=== PATIENT | female | born 1940 | race Caucasian/White ===

== ENCOUNTER → 2017-12-26 | Outpatient (CLI) | payer MEDICARE | LOC: M RAD 08:06 | DX: M47.817 Spondylosis without myelopathy or radiculopathy, lumbosacral region (principal); M54.16 Radiculopathy, lumbar region; M70.61 Trochanteric bursitis, right hip; M46.1 Sacroiliitis, not elsewhere classified | CPT/HCPCS: 72131 ==

== ENCOUNTER → 2018-12-10 | Outpatient (REF) | payer MEDICARE ==
[2018-12-10 18:30] LABS: APPEARANCE, URINE CLEAR (CLEAR); BACTERIA, URINE AUTO NEGATIVE (NEGATIVE); BILIRUBIN, URINE AUTO NEGATIVE (NEGATIVE); BLOOD, URINE BLOOD NEGATIVE (NEGATIVE); COLOR, URINE YELLOW (YELLOW); GLUCOSE, URINE (UA) AUTO NEGATIVE (NEGATIVE); KETONE, URINE AUTO NEGATIVE (NEGATIVE); LEUKOCYTE ESTERASE, URINE AUTO NEGATIVE (NEGATIVE); MUCUS, URINE SMALL (NEGATIVE); NITRITE, URINE AUTO NEGATIVE (NEGATIVE); PROTEIN, URINE AUTO NEGATIVE (NEGATIVE); RBC, URINE AUTO 2 /HPF (0-3); SPECIFIC GRAVITY URINE AUTO 1.018 (1.002-1.035); SQUAMOUS EPITHELIAL CELL UR AU 0 /HPF (0-6); UROBILINOGEN, URINE AUTO 0.2 mg/dL (0.0-2.0); WBC, URINE AUTO 0 /HPF (0-3)
== END ==
LOC: M LAB REF 16:25
PROVIDERS: ATTEND Obstetrics & Gynecology
DX: N32.81 Overactive bladder (principal); N39.41 Urge incontinence; N39.42 Incontinence without sensory awareness

== ENCOUNTER → 2019-07-29 | Outpatient (CLI) | payer MEDICARE ==
--- NOTE | 2019-07-29 10:17 | REP ---
CT LEFT ANKLE: Axial CT images of the left ankle performed with sagittal and coronal reconstruction images. There is no acute fracture or dislocation. Ankle mortise is intact with mild narrowing of the tibiotalar joint, and mild subchondral sclerosis. There is mild ligamentous calcification along the distal end of the fibula. No other osseous abnormities are seen. The soft tissue structures are grossly unremarkable. Electronically Signed by Kane Tompkins MD 07/29/2019 04:20 P
--- NOTE | 2019-07-29 10:31 | REP ---
CT LEFT LOWER LEG: Axial CT left lower leg performed with sagittal and coronal reconstruction images. There is no acute fracture or dislocation. At the knee joint there is mild chondrocalcinosis in the lateral joint. There is moderate narrowing of the lateral patellofemoral joint with mild subchondral sclerosis on both sides of the joint. Mild subchondral cystic change is seen in the lateral patellar facet and there is moderate spurring of the lateral patellar facet. There is mild narrowing of the tibiotalar joint. Surrounding soft tissue structures are grossly unremarkable. Electronically Signed by Kane Tompkins MD 07/29/2019 04:20 P
== END ==
LOC: M RAD 08:05
PROVIDERS: ATTEND Orthopaedic Surgery
DX: M25.762 Osteophyte, left knee (principal); M79.662 Pain in left lower leg

== ENCOUNTER 2019-09-29 23:52 | Emergency (ER) | payer MEDICARE ==
[~2019-09-29] VITALS: Ht 152.4 cm; Wt 65.9 kg
[2019-09-29 23:53] VITALS: BP 116/64
[2019-09-30] MEDS ORDERED: MYRB25TA PO (00:01)
[2019-09-30] MEDS ORDERED: VESI10TA2 PO (00:01)
[2019-09-30] MEDS ORDERED: GABA-845 PO (00:01)
[2019-09-30] MEDS ORDERED: CYMB1CAP4 PO (00:01)
[2019-09-30] MEDS ORDERED: ROXI1TAB2 PO (00:01)
[2019-09-30] MEDS ORDERED: LEVO25TA5 PO (00:01)
--- NOTE | 2019-09-30 01:11 | REPVR ---
PROCEDURE INFORMATION: Exam: US Duplex Right Lower Extremity Veins, Limited Exam date and time: 09/30/2019 12:39 AM Age: 79 years old Clinical indication: Pain; Leg, lower; Right; Additional info: R/O dvt rle TECHNIQUE: Imaging protocol: Real-time Duplex ultrasound of the Right Lower Extremity with 2-D de luna scale, color Doppler flow and spectral waveform analysis with image documentation. Limited exam was focused on the right lower extremity veins. COMPARISON: No relevant prior studies available. FINDINGS: Right deep veins: Unremarkable. The common femoral, femoral, proximal profunda femoral and popliteal veins are patent without thrombus. Normal Doppler waveforms. Normal compressibility and/or augmentation response. Right superficial veins: Unremarkable. Saphenofemoral junction is patent without thrombus. Soft tissues: Unremarkable. IMPRESSION: No acute findings. No evidence of deep vein thrombosis. Electronically signed by: Fazal Alvarado On 09/30/2019 01:11:19 AM
[2019-09-30] MEDS ORDERED: diazePAM 5 MG TAB PO ONE (01:45)
[2019-09-30] MEDS ORDERED: predniSONE 20 MG TAB PO ONE (01:45)
== END 2019-09-30 02:35 | disposition home or self-care (01) ==
LOC: M ED 23:52
DX: G89.29 Other chronic pain (principal); M54.10 Radiculopathy, site unspecified; M54.31 Sciatica, right side; Z88.0 Allergy status to penicillin

== ENCOUNTER → 2020-03-09 | Outpatient (REF) | payer MEDICARE ==
[~2020-03-09] MED LIST: CYMB1CAP4 PO; GABA-845 PO; LEVO25TA5 PO; MYRB25TA PO; ROXI1TAB2 PO; VESI10TA2 PO
== END ==
LOC: M LAB REF 09:22
PROVIDERS: ATTEND Dermatology
DX: D22.5 Melanocytic nevi of trunk (principal)
CPT/HCPCS: 11102; 17000; 17003; 88305; G0463

== ENCOUNTER → 2020-05-20 | Outpatient (REF) | payer MEDICARE | LOC: M LAB REF 17:30 | PROVIDERS: ATTEND Physician Assistant | DX: L57.0 Actinic keratosis (principal) | CPT/HCPCS: 11102; 17000; 17003; 88305; G0463 ==

== ENCOUNTER → 2021-03-22 | Outpatient (CLI) | payer MEDICARE ==
[~2021-03-22] MED LIST changes: +GABA-283 PO; -GABA-845 PO
--- NOTE | 2021-03-24 10:21 | REPVR ---
PROCEDURE INFORMATION: Exam: CT Lumbar Spine Without Contrast Exam date and time: 03/22/2021 10:41 AM Age: 80 years old Clinical indication: Low back pain; Prior surgery; Surgery date: 6+ months; Surgery type: Dcs, fusion; Additional info: Spinal stenosis, R/O hnp/stenosis/internal deragne TECHNIQUE: Imaging protocol: Computed tomography images of the lumbar spine without contrast. Radiation optimization: All CT scans at this facility use at least one of these dose optimization techniques: automated exposure control; mA and/or kV adjustment per patient size (includes targeted exams where dose is matched to clinical indication); or iterative reconstruction. COMPARISON: CT Spine, lumbar w/o contrast 12/26/2017 8:19 AM FINDINGS: Tubes, catheters and devices: There is a spinal stimulator entering at T11-T12 and extending superiorly and tip is not visualized. Vertebrae: No evidence of acute fracture. Stable minimal retrolisthesis of T12 on L1 and L1 on L2. T11-T12: The T11-T12, T12-L1, L3-4 and L5-S1 intervertebral discs are decreased in height. There are vacuum phenomenon T11-T12 and at the L5-S1 level. These findings are consistent with disc degeneration. L1-L2: A diffuse disc bulge is present at the L1-2 level. There is no significant spinal stenosis. There is mild neural foraminal narrowing. The L1 nerves exit the neural foramina without compression. L2-L3: A diffuse disc bulge is present at the L2-3 level. There is no significant spinal stenosis. There is mild neural foraminal narrowing. The L2 nerves exit the neural foramina without compression. L3-L4: A diffuse disc bulge is present at the L3-4 level. There is there is likely mild spinal stenosis. There is mild right and [id number] left neural foraminal narrowing. The L3 nerves exit the neural foramina without compression. L4-L5: The patient is status post L4-5 anterior and posterior spinal fusion and laminectomy. Metal hardware is present with interbody fusion graft as well as right phyllis and pedicle screws. No significant spinal canal compromise. There is disc bulge. There is hypertrophy of the posterior articulating facets. There are 7 mm of grade 1 spondylolisthesis of L4 on 5. There is moderate bilateral neural foraminal narrowing with probable compression of the L4 nerves in the neural foramina. L5-S1: A diffuse disc bulge is present at the L5-S1 level. There is no spinal stenosis. There is hypertrophy of the posterior articulating facets. There is moderate bilateral neural foraminal narrowing and likely compression of the L5 nerves in the neural foramina. Liver: There is stable 1.5 cm cyst in right lobe of liver. Stomach and bowel: Sigmoid diverticulosis is noted. Vasculature: There is atherosclerotic change. No aortic aneurysm. Soft tissues: There is fat containing posterior right Bochdalek's hernia. IMPRESSION: 1. Degenerative changes as described without significant interval change. 2. The patient is status post L4-5 anterior and posterior spinal fusion and 3. Laminectomy. No evidence of hardware complications. Electronically signed by: Roxanne Chaves On 03/24/2021 10:21:09 AM
== END ==
LOC: M PLAIMG 10:21
PROVIDERS: ATTEND Orthopaedic Surgery
DX: M51.34 Other intervertebral disc degeneration, thoracic region (principal); M51.35 Other intervertebral disc degeneration, thoracolumbar region; M51.36 Other intervertebral disc degeneration, lumbar region; M51.37 Other intervertebral disc degeneration, lumbosacral region; M51.26 Other intervertebral disc displacement, lumbar region; M51.27 Other intervertebral disc displacement, lumbosacral region; Z98.890 Other specified postprocedural states

== ENCOUNTER → 2022-06-07 | Outpatient (CLI) | payer MEDICARE ==
[~2022-06-07] MED LIST changes: +GABA-1171 PO; +MULT-40 PO
[2022-06-07 12:42] LABS: HEMATOCRIT 37.9 % (36.0-47.0); HEMOGLOBIN 11.7 g/dl (12.0-15.5); MEAN CORPUSCULAR HEMOGLOBIN 28.1 pg (27.0-33.0); MEAN CORPUSCULAR HGB CONC 30.9 g/dl (32.0-36.5); MEAN CORPUSCULAR VOLUME 90.9 fl (80.0-96.0); PLATELET COUNT, AUTOMATED 237 10^3/uL (150-450); RED BLOOD COUNT 4.17 10^6/uL (4.00-5.40); WHITE BLOOD COUNT 4.5 10^3/uL (4.0-10.0)
[2022-06-07 12:54] LABS: INR 0.96
[2022-06-07 13:42] LABS: ALBUMIN 3.6 GM/DL (3.2-5.2); ALT/SGPT 24 U/L (12-78); BILIRUBIN,TOTAL 0.4 MG/DL (0.2-1.0); BLOOD UREA NITROGEN 18 MG/DL (7-18); CALCIUM LEVEL 9.3 MG/DL (8.8-10.2); CARBON DIOXIDE LEVEL 29 MEQ/L (21-32); CHLORIDE LEVEL 106 MEQ/L (98-107); CHOLESTEROL LEVEL 200 MG/DL (<200); CHOLESTEROL RISK RATIO 2.597 (<5); CREATININE FOR GFR 0.78 MG/DL (0.55-1.30); GLOMERULAR FILTRATION RATE > 60.0 (>32); GLUCOSE, FASTING 95 MG/DL (70-100); HDL CHOLESTEROL 77 MG/DL (>40); LDL CHOLESTEROL 106 MG/DL (<100); NON-HDL-C 123 MG/DL; POTASSIUM SERUM 4.2 MEQ/L (3.5-5.1); SODIUM LEVEL 139 MEQ/L (136-145); TOTAL PROTEIN 7.2 GM/DL (6.4-8.2); TRIGLYCERIDES LEVEL 83 MG/DL (<150)
[2022-06-07 14:13] LABS: HEMOGLOBIN A1c 5.7 %
== END ==
LOC: M RAD 11:08
PROVIDERS: ATTEND Family Medicine
DX: Z01.818 Encounter for other preprocedural examination (principal); I10 Essential (primary) hypertension; E11.9 Type 2 diabetes mellitus without complications

== ENCOUNTER → 2022-06-13 | Outpatient (CLI) | payer MEDICARE | LOC: M LABSMTC 10:21 | PROVIDERS: ATTEND Anesthesiology | DX: Z01.812 Encounter for preprocedural laboratory examination (principal); Z20.822 Contact with and (suspected) exposure to COVID-19 ==

== ENCOUNTER 2022-07-09 04:28 | Emergency (ER) | payer MEDICARE ==
[~2022-07-09] VITALS: Ht 185.4 cm; Wt 78.3 kg
[2022-07-09] MEDS ORDERED: OXYC1TAB23 PO (04:42)
[2022-07-09] MEDS ORDERED: FLON1SPR NARES (04:42)
[2022-07-09] MEDS ORDERED: ASPI81TA26 PO (04:42)
[2022-07-09] MEDS ORDERED: CETI10CH PO (04:42)
[2022-07-09 06:49] VITALS: BP 126/70
[2022-07-09] MEDS ORDERED: METHOCARBAMOL 1,000 MG/10 ML VIAL IM ONE (07:05)
== END 2022-07-09 09:07 | disposition home or self-care (01) ==
LOC: M ED 04:28
DX: J04.0 Acute laryngitis (principal); R05.9 Cough, unspecified; M62.838 Other muscle spasm; Z79.82 Long term (current) use of aspirin; Z79.899 Other long term (current) drug therapy; Z88.0 Allergy status to penicillin
CPT/HCPCS: 87486; 87581; 87633; 87798; 96372; 99283; J2800

== ENCOUNTER → 2022-08-24 | Outpatient (REF) | payer MEDICARE ==
[~2022-08-24] MED LIST changes: +ASPI81TA26 PO; +CEPH500C PO; +CETI10CH PO; +DULO1CAP4 PO; +ERGO500029; +FLON1SPR NARES; +FLUT11IN; +GABA-282 PO; +GABA800T4 PO; +KP F1200 PO; +LEVO50TA5 PO; +MV-M1CAP8 PO; +OXYC-517 PO; +OXYC1TAB23 PO; +VITA100093 PO; +VITMTA PO
== END ==
LOC: M SFHCDERM 14:17
PROVIDERS: ATTEND Nurse Practitioner Family
DX: L57.0 Actinic keratosis (principal)

== ENCOUNTER → 2022-10-13 | Outpatient (CLI) | payer MEDICARE ==
[2022-10-13 10:20] LABS: BASO # 0.1 10^3/uL (0.0-0.2); BASO % 1.1 % (0.0-1.0); EOS # 0.3 10^3/uL (0.0-0.5); EOS % 7.1 % (0.0-3.0); HEMATOCRIT 37.2 % (36.0-47.0); HEMOGLOBIN 11.5 g/dl (12.0-15.5); LYMPH # 1.2 10^3/uL (1.5-5.0); LYMPH % 28.4 % (24.0-44.0); MEAN CORPUSCULAR HEMOGLOBIN 27.4 pg (27.0-33.0); MEAN CORPUSCULAR HGB CONC 30.9 g/dl (32.0-36.5); MEAN CORPUSCULAR VOLUME 88.6 fl (80.0-96.0); MONO # 0.4 10^3/uL (0.0-0.8); MONO % 8.9 % (2.0-8.0); NEUTROPHILS # 2.4 10^3/uL (1.5-8.5); NEUTROPHILS % 54.5 % (36.0-66.0); PLATELET COUNT, AUTOMATED 277 10^3/uL (150-450); WHITE BLOOD COUNT 4.4 10^3/uL (4.0-10.0)
[2022-10-13 10:39] LABS: ALBUMIN 3.4 G/DL (3.2-5.2); ALKALINE PHOSPHATASE 96 U/L (46-116); ALT/SGPT 20 U/L (7.0-40); AST/SGOT 23 U/L (<34); BILIRUBIN,TOTAL 0.4 MG/DL (0.3-1.2); BLOOD UREA NITROGEN 19 MG/DL (9-23); CALCIUM LEVEL 8.7 MG/DL (8.3-10.6); CARBON DIOXIDE LEVEL 29 MMOL/L (20-31); CHLORIDE LEVEL 108 MMOL/L (98-107); CHOLESTEROL LEVEL 186 MG/DL (<200); CHOLESTEROL RISK RATIO 2.75 (<5); CREATININE FOR GFR 0.73 MG/DL (0.55-1.30); GLOMERULAR FILTRATION RATE > 60.0 (>32); GLUCOSE, FASTING 93 MG/DL (74-106); HDL CHOLESTEROL 67.5 MG/DL (>40); LDL CHOLESTEROL 105.3 MG/DL (<100); NON-HDL-C 119 MG/DL; POTASSIUM SERUM 4.5 MMOL/L (3.5-5.1); SODIUM LEVEL 142 MMOL/L (136-145); THYROID STIMULATING HORMONE 1.791 uIU/ML (0.55-4.78); TOTAL 25(OH) VITAMIN D 73.1 NG/ML (20.0-100.0); TOTAL PROTEIN 6.7 G/DL (5.7-8.2); TRIGLYCERIDES LEVEL 66 MG/DL (<150)
[2022-10-13 10:40] LABS: FREE T4 1.13 NG/DL (0.89-1.76)
== END ==
LOC: M LAB 09:26
PROVIDERS: ATTEND Registered Nurse
DX: E03.9 Hypothyroidism, unspecified (principal); E55.9 Vitamin D deficiency, unspecified; Z79.899 Other long term (current) drug therapy

== ENCOUNTER → 2022-10-14 | Outpatient (CLI) | payer MEDICARE ==
[~2022-10-14] MED LIST changes: -CEPH500C PO
== END ==
LOC: M LABSMTC 09:37
PROVIDERS: ATTEND Anesthesiology
DX: Z01.812 Encounter for preprocedural laboratory examination (principal); Z20.822 Contact with and (suspected) exposure to COVID-19

== ENCOUNTER → 2022-10-19 | Day surgery (SDC) | payer MEDICARE ==
[~2022-10-19] VITALS: Ht 152.4 cm; Wt 66.3 kg
[~2022-10-19] MED LIST changes: +BSS IRRIG/VANCO(10MG)/TOBRA(5MG)/EPINEPH(1:1000-0.5CC)500ML BAG-ORONLY IR ONE; +CEPH500C PO; +CYCLOPENTOLATE 1% OPHTH SOLN 2ML BTL OS SCH; +LIDOCAINE 1% SDV 5ML VIAL As Ordered ONE; +LIDOCAINE 3.5 % 1ML OPHTH TOPICAL GEL OU ONE; +MIDAZOLAM INJ 2MG/2ML VIAL As Ordered ONE; +OFLOXACIN 0.3 % (OCUFLOX) OPTH SOL 5ML OS ONE; +PHENYLEPHRINE 10% OPHTH SOL 5ML OS PRN; +PHENYLEPHRINE 2.5% OPHTH SOL 2ML OS SCH; +TROPICAMIDE 1% OPHTH SOLN 15ML OS SCH; +fentaNYL 100 MCG/2 ML INJECTION As Ordered ONE
[2022-10-19 14:22] VITALS: BP 124/62
== END | disposition home or self-care (01) ==
LOC: M SDC 12:28
PROVIDERS: ATTEND Ophthalmology
DX: H25.12 Age-related nuclear cataract, left eye (principal); E03.9 Hypothyroidism, unspecified; M19.90 Unspecified osteoarthritis, unspecified site; J45.909 Unspecified asthma, uncomplicated; N39.44 Nocturnal enuresis; S91.001A Unspecified open wound, right ankle, initial encounter; X58.XXXA Exposure to other specified factors, initial encounter; Y92.89 Other specified places as the place of occurrence of the external cause; Z96.82 Presence of neurostimulator; Z96.641 Presence of right artificial hip joint; Z88.0 Allergy status to penicillin; Z91.018 Allergy to other foods; Z79.899 Other long term (current) drug therapy; Z79.890 Hormone replacement therapy; Z79.2 Long term (current) use of antibiotics; Z79.51 Long term (current) use of inhaled steroids
CPT/HCPCS: 66984; J2250; J3010; V2632

== ENCOUNTER → 2022-11-07 | Outpatient (REF) | payer MEDICARE ==
[~2022-11-07] MED LIST changes: -BSS IRRIG/VANCO(10MG)/TOBRA(5MG)/EPINEPH(1:1000-0.5CC)500ML BAG-ORONLY IR ONE; -CYCLOPENTOLATE 1% OPHTH SOLN 2ML BTL OS SCH; -LIDOCAINE 1% SDV 5ML VIAL As Ordered ONE; -LIDOCAINE 3.5 % 1ML OPHTH TOPICAL GEL OU ONE; -MIDAZOLAM INJ 2MG/2ML VIAL As Ordered ONE; -OFLOXACIN 0.3 % (OCUFLOX) OPTH SOL 5ML OS ONE; -PHENYLEPHRINE 10% OPHTH SOL 5ML OS PRN; -PHENYLEPHRINE 2.5% OPHTH SOL 2ML OS SCH; -TROPICAMIDE 1% OPHTH SOLN 15ML OS SCH; -fentaNYL 100 MCG/2 ML INJECTION As Ordered ONE
== END ==
LOC: M SFHCDERM 17:30
PROVIDERS: ATTEND Nurse Practitioner Family
DX: Z87.2 Personal history of diseases of the skin and subcutaneous tissue (principal)

== ENCOUNTER → 2022-11-08 | Outpatient (CLI) | payer MEDICARE | LOC: M WHC 10:20 | PROVIDERS: ATTEND Family Medicine | DX: Z12.31 Encounter for screening mammogram for malignant neoplasm of breast (principal); Z13.820 Encounter for screening for osteoporosis; M81.0 Age-related osteoporosis without current pathological fracture; M85.852 Other specified disorders of bone density and structure, left thigh ==

== ENCOUNTER 2022-12-14 11:15 | Day surgery (SDC) | payer MEDICARE ==
[~2022-12-14] VITALS: Ht 149.9 cm; Wt 67.1 kg
[~2022-12-14 11:15] MED LIST changes: +ACETYLCHOLINE OPHTH SOLN 1% 2ML (MIOCHOL-E) As Ordered ONE; +ALEN70TA82 PO; +BSS IRRIG/VANCO(10MG)/TOBRA(5MG)/EPINEPH(1:1000-0.5CC)500ML BAG-ORONLY IR ONE; +LIDOCAINE 1% SDV 5ML VIAL As Ordered ONE; +LIDOCAINE 3.5 % 1ML OPHTH TOPICAL GEL OU ONE; +OFLOXACIN 0.3 % (OCUFLOX) OPTH SOL 5ML OD ONE; +PHENYLEPHRINE 10% OPHTH SOL 5ML OD PRN
[2022-12-14] MEDS: PHENYLEPHRINE 2.5% OPHTH SOL 2ML OD SCH ×3 (12:01→12:13)
[2022-12-14] MEDS: TROPICAMIDE 1% OPHTH SOLN 15ML OD SCH ×3 (12:01→12:13)
[2022-12-14] MEDS: CYCLOPENTOLATE 1% OPHTH SOLN 2ML BTL OD SCH ×3 (12:02→12:13)
[2022-12-14] MEDS ORDERED: MIDAZOLAM INJ 2MG/2ML VIAL As Ordered ONE (12:32)
[2022-12-14] MEDS ORDERED: fentaNYL 100 MCG/2 ML INJECTION As Ordered ONE (12:33)
[2022-12-14 13:00] VITALS: BP 133/74
== END 2022-12-14 13:28 | disposition home or self-care (01) ==
LOC: M SDC 11:15
PROVIDERS: ATTEND Ophthalmology
DX: H25.11 Age-related nuclear cataract, right eye (principal); E03.9 Hypothyroidism, unspecified; J45.909 Unspecified asthma, uncomplicated; M13.80 Other specified arthritis, unspecified site; N95.1 Menopausal and female climacteric states; Z88.0 Allergy status to penicillin; Z91.018 Allergy to other foods; Z79.891 Long term (current) use of opiate analgesic; Z79.899 Other long term (current) drug therapy
CPT/HCPCS: 66984; J2250; J3010; V2632

== ENCOUNTER → 2023-06-05 | Outpatient (CLI) | payer MEDICARE ==
[~2023-06-05] MED LIST changes: -ACETYLCHOLINE OPHTH SOLN 1% 2ML (MIOCHOL-E) As Ordered ONE; -BSS IRRIG/VANCO(10MG)/TOBRA(5MG)/EPINEPH(1:1000-0.5CC)500ML BAG-ORONLY IR ONE; -FLUT11IN; +FLUT12AE6; -GABA-283 PO; +GABA-284 PO; +ISOVUE-370 76% 100ML VIAL As Ordered ONE; -LIDOCAINE 1% SDV 5ML VIAL As Ordered ONE; -LIDOCAINE 3.5 % 1ML OPHTH TOPICAL GEL OU ONE; -OFLOXACIN 0.3 % (OCUFLOX) OPTH SOL 5ML OD ONE; -PHENYLEPHRINE 10% OPHTH SOL 5ML OD PRN
== END ==
LOC: M RAD 08:10
PROVIDERS: ATTEND Pain Medicine Interventional Pain Medicine
DX: M96.1 Postlaminectomy syndrome, not elsewhere classified (principal)
CPT/HCPCS: 72132; Q9967

== ENCOUNTER 2023-07-18 14:08 | Emergency (ER) | payer MEDICARE ==
[~2023-07-18] VITALS: Ht 149.9 cm; Wt 68.0 kg
[~2023-07-18 14:08] MED LIST changes: -ISOVUE-370 76% 100ML VIAL As Ordered ONE
[2023-07-18 15:12] LABS: VENOUS BASE EXCESS -0.5 (-2.0-2.0); VENOUS HCO3 24.9 MMOL/L (23.0-27.0); VENOUS O2 SATURATION 94.8 % (60.0-80.0); VENOUS PARTIAL PRESSURE O2 78.9 mmHg (30.0-50.0); VENOUS PH 7.371 UNITS (7.330-7.430); VENOUS TOTAL CO2 26.3 MMOL/L (24.0-28.0)
[2023-07-18 15:17] LABS: BASO # 0.1 10^3/uL (0.0-0.2); BASO % 1.5 % (0.0-1.0); EOS # 0.2 10^3/uL (0.0-0.5); EOS % 4.6 % (0.0-3.0); HEMATOCRIT 35.2 % (36.0-47.0); HEMOGLOBIN 10.6 g/dl (12.0-15.5); LYMPH # 1.2 10^3/uL (1.5-5.0); LYMPH % 29.9 % (24.0-44.0); MEAN CORPUSCULAR HEMOGLOBIN 26.4 pg (27.0-33.0); MEAN CORPUSCULAR HGB CONC 30.1 g/dl (32.0-36.5); MEAN CORPUSCULAR VOLUME 87.8 fl (80.0-96.0); MONO # 0.4 10^3/uL (0.0-0.8); MONO % 8.5 % (2.0-8.0); NEUTROPHILS # 2.3 10^3/uL (1.5-8.5); NEUTROPHILS % 55.3 % (36.0-66.0); PLATELET COUNT, AUTOMATED 338 10^3/uL (150-450); RED BLOOD COUNT 4.01 10^6/uL (4.00-5.40); WHITE BLOOD COUNT 4.1 10^3/uL (4.0-10.0)
[2023-07-18 15:31] LABS: INR 1.01
[2023-07-18 15:45] LABS: ALBUMIN 3.4 G/DL (3.2-5.2); ALKALINE PHOSPHATASE 74 U/L (46-116); ALT/SGPT 45 U/L (7.0-40); AST/SGOT 37 U/L (<34); BILIRUBIN,DIRECT < 0.1 MG/DL (<0.4); BILIRUBIN,TOTAL 0.3 MG/DL (0.3-1.2); BLOOD UREA NITROGEN 20 MG/DL (9-23); CALCIUM LEVEL 8.7 MG/DL (8.3-10.6); CARBON DIOXIDE LEVEL 27 MMOL/L (20-31); CHLORIDE LEVEL 105 MMOL/L (98-107); CK-MB VALUE MASS 1.1 NG/ML (<3.6); CPK CREATINE PHOSPHOKINASE 85 U/L (34-145); CREATININE FOR GFR 0.64 MG/DL (0.55-1.30); GLOMERULAR FILTRATION RATE > 60.0 (>32); GLUCOSE, FASTING 115 MG/DL (74-106); MB/CK RELATIVE INDEX 1.29 (< OR =4); SODIUM LEVEL 139 MMOL/L (136-145); TOTAL PROTEIN 6.9 G/DL (5.7-8.2)
[2023-07-18 15:47] LABS: THYROID STIMULATING HORMONE 1.365 uIU/ML (0.55-4.78); THYROXINE (T4) 12.1 UG/DL (4.5-10.9)
[2023-07-18 18:32] VITALS: O2SAT 94
[2023-07-18 20:42] VITALS: BP 132/88; TEMP 98; O2SAT 97
== END 2023-07-18 20:45 | disposition home or self-care (01) ==
LOC: M ED 14:08
DX: D64.9 Anemia, unspecified (principal); R06.02 Shortness of breath; J45.909 Unspecified asthma, uncomplicated; E03.9 Hypothyroidism, unspecified; Z79.899 Other long term (current) drug therapy; Z88.0 Allergy status to penicillin; Z91.018 Allergy to other foods

== ENCOUNTER → 2023-11-24 | Outpatient (CLI) | payer MEDICARE | LOC: M WHC 10:04 | PROVIDERS: ATTEND Registered Nurse | DX: Z12.31 Encounter for screening mammogram for malignant neoplasm of breast (principal) ==

== ENCOUNTER → 2023-12-25 | Outpatient (CLI) | payer MEDICARE | LOC: M RAD 08:57 | PROVIDERS: ATTEND Pain Medicine Interventional Pain Medicine | DX: M19.011 Primary osteoarthritis, right shoulder (principal) ==

== ENCOUNTER → 2024-11-25 | Outpatient (CLI) | payer MEDICARE ==
[~2024-11-25] MED LIST changes: +GABA-1172 PO; +GABA-1635 PO; -GABA-282 PO; -GABA800T4 PO
== END ==
LOC: M WHC 12:37
PROVIDERS: ATTEND Registered Nurse
DX: Z12.31 Encounter for screening mammogram for malignant neoplasm of breast (principal); Z13.820 Encounter for screening for osteoporosis; M81.0 Age-related osteoporosis without current pathological fracture; M85.88 Other specified disorders of bone density and structure, other site; M85.852 Other specified disorders of bone density and structure, left thigh; R92.313 Mammographic fatty tissue density, bilateral breasts